=== PATIENT | female | born 1955 | race Caucasian/White ===

== ENCOUNTER 2024-02-14 06:52 | Day surgery (SDC) | payer MEDICARE ==
[2024-02-13 08:55] VITALS: BMI 21.7
[~2024-02-14 06:52] MED LIST: LACTATED RINGERS 1,000 ML IV SCH
[2024-02-14 07:18] VITALS: RESP 16; TEMP 97.3
[2024-02-14] MEDS: IV FLUID CONTINUATION 1,000 ML IV ONE (07:22)
[2024-02-14] MEDS ORDERED: PROPOFOL 10 MG/ML 20 ML VIAL IV ONE (08:19)
--- NOTE | 2024-02-14 08:40 | P.PCN ---
Date of Procedure: 02/14/24 Procedure(s) Performed: BRIEF HISTORY: Patient is a 68-year-old pleasant white female scheduled for an elective colonoscopy as a part of screening for colon cancer/positive Cologuard. PROCEDURE PERFORMED: Colonoscop polypectomy and Endo Clip placement. PREOPERATIVE DIAGNOSIS: Positive Cologuard/screening for colon cancer. IV sedation per Anesthesia. PROCEDURE: After informed consent was obtained, the patient, was brought into the endoscopy unit. IV sedation was administered by Anesthesia under continuous monitoring. Digital rectal examination was normal. Initially the Olympus CF-160 flexible video colonoscope was then inserted in the rectum, gradually advanced into the cecum without any difficulty. Careful examination was performed as the scope was gradually being withdrawn. Ileocecal valve and the appendiceal orifice were visualized and appeared normal. Prep was excellent. Mucosa of the cecum, ascending colon, transverse colon, descending colon, appeared normal. The sigmoid colon there was a 1 cm polyp removed with snare polypectomy. In the mid rectum at 10 cm from the anal verge there was a 2.5 cm broad-based polyp that was removed by piecemeal snare polypectomy followed by Endo Clip placement and complete polypectomy accomplished retroflexion was performed in the rectum and no lesions were seen. The patient tolerated the procedure well. IMPRESSION: 1 cm sigmoid colon polyp status post polypectomy 2.5 cm broad-based mid rectal polyp status post polypectomy followed by Endo Clip placement and complete polypectomy accomplished RECOMMENDATIONS: Findings of this examination were discussed with the patient as well as his family. She was advised to follow-up with the biopsy results. If the biopsy reveals adenoma she can have repeat colonoscopy 3 years.
[2024-02-14 09:04] VITALS: BP 123/77; PULSE 53
== END 2024-02-14 09:23 | disposition home or self-care (01) ==
LOC: ORWHC2ENDO 06:52
PROVIDERS: ATTEND Internal Medicine Gastroenterology
DX: Z12.11 Encounter for screening for malignant neoplasm of colon (principal); D12.5 Benign neoplasm of sigmoid colon; D12.8 Benign neoplasm of rectum; F03.90 Unspecified dementia, unspecified severity, without behavioral disturbance, psychotic disturbance, mood disturbance, and anxiety; F17.200 Nicotine dependence, unspecified, uncomplicated
CPT/HCPCS: 45385; J2704; 88305